=== PATIENT | male | born 1945 | race Caucasian/White ===

== ENCOUNTER 2020-02-11 07:40 | Outpatient (CLI) | payer MEDICARE, OTHER ==
[~2020-02-11 07:40] MED LIST: ASPI-515 PO; CARV12.52 PO; FURO20TA3 PO; GEMF600T8 PO; LISI5TAB7 PO; METF500T27 PO; PANT20TA3 PO; POTA20TA14 PO
== END 2020-02-11 23:59 | disposition home or self-care (01) ==
LOC: CVU 07:40
PROVIDERS: ATTEND Internal Medicine Cardiovascular Disease
DX: I08.2 Rheumatic disorders of both aortic and tricuspid valves (principal); I42.9 Cardiomyopathy, unspecified; I82.629 Acute embolism and thrombosis of deep veins of unspecified upper extremity
CPT/HCPCS: 93306; 93971

== ENCOUNTER → 2020-07-22 | Outpatient (CLI) | payer OTHER ==
[~2020-07-22] MED LIST changes: +AMIO200T42 PO; +ELIQUIS; -PANT20TA3 PO; +PANT20TA4 PO
== END | disposition home or self-care (01) ==
LOC: CFH 08:05
PROVIDERS: ATTEND Internal Medicine Clinical Cardiac Electrophysiology
DX: Z51.81 Encounter for therapeutic drug level monitoring (principal); Z95.810 Presence of automatic (implantable) cardiac defibrillator
CPT/HCPCS: 71046

== ENCOUNTER 2020-08-02 14:06 | Emergency (ER) | payer OTHER ==
[~2020-08-02] VITALS: Ht 195.6 cm; Wt 118.1 kg
[~2020-08-02 14:06] MED LIST changes: -ASPI-515 PO; +ASPI-963 PO; +GEMF-31 PO; -GEMF600T8 PO
--- NOTE | 2020-08-02 14:26 | NUR ---
PT REPORTS PACEMAKER WENT OFF THIS AFTERNOON AT 1255, FELT DIZZY. ERMD AT BEDSIDE FOR EVAL. PT PLACED ON CARDIAC AND VITALS MONITORS.
[2020-08-02] MEDS ORDERED: SODIUM CHLORIDE FLUSH 10ML SYR IVF ONE (15:00)
--- NOTE | 2020-08-02 15:16 | NUR ---
PT REFUSING IV AT THIS TIME, STATES HE HAS A HX OF BLOOD CLOTS FROM IV. EDUCATED PT ON POSSIBLE NEED FOR IV ACCESS, PT STILL REFUSING.
[2020-08-02 15:17] LABS: BASOPHILS % (AUTO) 1 % (0-1); EOSINOPHILS % (AUTO) 5 % (1-7); LYMPHOCYTES % (AUTO) 20 % (22-44); MEAN CORPUSCULAR HEMOGLOBIN 31.8 pg (27.5-34.5); MEAN CORPUSCULAR HGB CONC 33.7 g/dL (33.2-36.2); MEAN PLATELET VOLUME 10.5 fL (7.4-10.4); MONOCYTES % (AUTO) 6 % (2-9); NEUTROPHILS % (AUTO) 68 % (42-75); PLATELET COUNT 218 x10^3/uL (130-400); RED BLOOD COUNT 4.19 x10^6/uL (4.38-5.82); RED CELL DISTRIBUTION WIDTH 14.7 % (9.4-14.8)
[2020-08-02 15:18] LABS: ALBUMIN 4.1 g/dL (3.4-5.0); ANION GAP 8 mmol/L (5-15); CALCIUM 8.9 mg/dL (8.5-10.1); CHLORIDE 111 mmol/L (98-107); CREATININE 1.43 mg/dL (0.7-1.3)
[2020-08-02 15:19] LABS: MD NO
[2020-08-02 15:22] LABS: TROPONIN I 0.054 ng/mL (0.000-0.045)
[2020-08-02 16:26] VITALS: BP 163/94
== END 2020-08-02 16:37 | disposition home or self-care (01) ==
LOC: ED 15:36
DX: I47.2 Ventricular tachycardia (principal); R55 Syncope and collapse; R42 Dizziness and giddiness; R07.9 Chest pain, unspecified; I10 Essential (primary) hypertension; E11.9 Type 2 diabetes mellitus without complications; E78.5 Hyperlipidemia, unspecified; Z95.0 Presence of cardiac pacemaker
CPT/HCPCS: 36415; 71045; 80048; 82040; 83735; 84484; 85025; 93005; 99285

== ENCOUNTER → 2020-09-28 | Outpatient (CLI) | payer OTHER ==
[2020-09-28 16:39] LABS: ALANINE AMINOTRANSFERASE 10 U/L (12-78); ALBUMIN 4.3 g/dL (3.4-5.0); ANION GAP 10 mmol/L (5-15); CALCIUM 8.8 mg/dL (8.5-10.1); CHLORIDE 107 mmol/L (98-107); CREATININE 1.69 mg/dL (0.7-1.3)
[2020-09-28 16:50] LABS: ALKALINE PHOSPHATASE 68 U/L (45-117); BILIRUBIN,TOTAL 0.4 mg/dL (0.2-1.0); TOTAL PROTEIN 7.4 g/dL (6.4-8.2)
== END | disposition home or self-care (01) ==
LOC: LAB 16:08
PROVIDERS: ATTEND Nurse Practitioner Family
DX: Z51.81 Encounter for therapeutic drug level monitoring (principal); I42.9 Cardiomyopathy, unspecified; I47.2 Ventricular tachycardia; I82.629 Acute embolism and thrombosis of deep veins of unspecified upper extremity; Z79.899 Other long term (current) drug therapy; Z95.810 Presence of automatic (implantable) cardiac defibrillator
CPT/HCPCS: 36415; 80053; 84436; 84443; 84481

== ENCOUNTER 2021-03-11 09:51 | Outpatient (CLI) | payer OTHER ==
[2021-03-11 10:18] LABS: BASOPHILS % (AUTO) 1 % (0-1); EOSINOPHILS % (AUTO) 5 % (1-7); LYMPHOCYTES % (AUTO) 23 % (22-44); MEAN CORPUSCULAR HEMOGLOBIN 31.9 pg (27.5-34.5); MEAN CORPUSCULAR HGB CONC 33.2 g/dL (33.2-36.2); MONOCYTES % (AUTO) 6 % (2-9); NEUTROPHILS % (AUTO) 66 % (42-75); PLATELET COUNT 228 x10^3/uL (130-400); RED BLOOD COUNT 3.68 x10^6/uL (4.38-5.82); RED CELL DISTRIBUTION WIDTH 14.1 % (9.4-14.8)
[2021-03-11 10:30] LABS: ALANINE AMINOTRANSFERASE 8 U/L (12-78); ALBUMIN 3.8 g/dL (3.4-5.0); ANION GAP 8 mmol/L (5-15); CALCIUM 9.1 mg/dL (8.5-10.1); CHLORIDE 113 mmol/L (98-107); CREATININE 1.25 mg/dL (0.7-1.3); T4 (THYROXINE) 12.4 mcg/dL (4.5-12.1)
[2021-03-11 10:41] LABS: ALKALINE PHOSPHATASE 60 U/L (45-117); BILIRUBIN,TOTAL 0.8 mg/dL (0.2-1.0)
== END 2021-03-11 23:59 | disposition home or self-care (01) ==
LOC: LAB 09:51
PROVIDERS: ATTEND Internal Medicine Clinical Cardiac Electrophysiology
DX: E11.22 Type 2 diabetes mellitus with diabetic chronic kidney disease (principal); D64.9 Anemia, unspecified; E66.9 Obesity, unspecified; E78.5 Hyperlipidemia, unspecified; E87.5 Hyperkalemia; E87.8 Other disorders of electrolyte and fluid balance, not elsewhere classified; I21.4 Non-ST elevation (NSTEMI) myocardial infarction; I42.9 Cardiomyopathy, unspecified; I47.2 Ventricular tachycardia; I49.01 Ventricular fibrillation; N17.9 Acute kidney failure, unspecified; Z95.810 Presence of automatic (implantable) cardiac defibrillator
CPT/HCPCS: 36415; 71046; 80053; 84436; 84443; 84481; 85025